=== PATIENT | female | born 2000 | race American Indian/Alaskan Native ===

== ENCOUNTER 2020-10-25 22:18 | Inpatient (IN) | payer MEDICAID ==
[2020-10-25] MEDS ORDERED: ePHEDrine SULFATE 50 MG/1 ML INJ IV PRN (22:49)
[2020-10-25] MEDS ORDERED: MINERAL OIL 30 ML ORAL LIQD PO PRN (22:49)
[2020-10-25] MEDS ORDERED: LIDOCAINE (2%) 20 MG/1 ML VIAL 20 ML MDV INFILTRATI ONE (22:49)
[2020-10-25] MEDS ORDERED: diphenhydrAMINE 25 MG CAP PO PRN (22:51)
[2020-10-25] MEDS ORDERED: MAGNESIUM HYDROXIDE (MOM) ORAL LIQD UDC PO PRN (22:51)
[2020-10-25] MEDS ORDERED: LANOLIN/ZINC/DIMETHICONE (LANSINOH) 7 GM TP PRN (22:51)
[2020-10-25] MEDS ORDERED: WITCH HAZEL/ GLYCERIN PAD TP PRN (22:51)
[2020-10-25] MEDS ORDERED: LACTATED RINGERS 1,000 ML IV SCH (23:00)
[2020-10-25] MEDS ORDERED: OXYTOCIN DRIP 30 UNITS/500 ML BAG IV SCH (23:00)
--- NOTE | 2020-10-25 23:01 | Procedure Note ---
OB Delivery Note - Delivery Date of Delivery: 10/25/20 Surgeon: SAMI BURTON Estimated blood loss: 100cc - Vaginal Delivery presentation: vertex Intrapartum events: labor-<37 weeks, precipitous labor- <3hr Delivery induction: none Delivery monitor: none Route of delivery: Delivery placenta: spontaneous Delivery cord: 3 umbilical vessels Episiotomy: none Delivery laceration: none Anesthesia: none Delivery comments: Called to deliver placenta after precipitous of a patient who delivered a liveborn male upon arrival to L&D. Provider was not in house at time of . Came to room and found patient lying on stretcher holding baby on her chest; baby was crying. NICU nurse was present and states baby was over a minute old; 3 vessel cord double clamped and cut and baby taken to radiant warmer. Patient moved to labor bed and placenta/membranes delivered spontaneously and appeared intact. Patient states her blood type is B+ so cord blood was not obtained. Pitocin given IM since no IV was in place at time of . Fundus firmed with massage. EBL 100 cc. No lacerations noted. Vaginal sweep negative. Baby was taken to NICU. Weight and apgars not known at this time. Placenta sent to path.
[2020-10-25] MEDS ORDERED: OXYTOCIN 10 UNIT/1 ML INJ IM ONE (23:03)
--- NOTE | 2020-10-25 23:17 | History and Physical Report ---
History of Present Illness Date of examination: 10/25/20 Date of admission: 10/25/20 22:21 Chief complaint: Precipitous upon arrival to L&D; patient. History of present illness: 20 year old presented to L&D and delivered immediately upon entry into labor room. Provider was not in house so I was called to deliver placenta (see delivery note). Patient states her due date is 12/11/2020 and that she receives care at [facility]. records are not available. Patient denies any complications during the . States her only medication is vitamins. States she had cramps prior to coming to the ED and states her water broke in the ED. Past History Past Medical History: no pertinent history Past Surgical History: no surgical history [employer] History: denies: chlamydia, gonorrhea, hepatitis B, HIV, syphilis, trichomonas Family/Genetic History: none Social history: no significant social history, full code - Obstetrical History Expected Date of Delivery: 12/11/20 Actual Gestation: 33 Week(s) 2 Day(s) : 1 Para: 0 Hx # Term Pregnancies: 0 Number of Pregnancies: 0 Spontaneous Abortions: 0 Induced : 0 Number of Living Children: 0 Medications and Allergies Allergies Allergy/AdvReac Type Severity Reaction Status Date / Time No Known Allergies Allergy Unverified 10/25/20 22:27 Home Medications Medication Instructions Recorded Confirmed Last Taken Type 148/Iron/Folate 6/Dha 1 mg PO DAILY 10/25/20 10/25/20 10/25/20 09:00 History Active Meds: Active Medications Bisacodyl (Bisacodyl 10 Mg Rect Supp) 10 mg ND BID PRN PRN Reason: Constipation Diphenhydramine HCl (Diphenhydramine 25 Mg Cap) 25 mg PO Q6H PRN PRN Reason: Itching Ephedrine Sulfate (Ephedrine Sulfate 50 Mg/1 Ml Inj) 10 mg IV Q2M PRN PRN Reason: Hypotension Lactated Ringer's (Lactated Ringers) 1,000 mls @ 125 mls/hr IV DIRECT FLAKITA Oxytocin/Sodium Chloride (Pitocin/Ns 30 Unit/500ml) 30 units in 500 mls @ 40 m ls/hr IV TITR FLAKITA; Protocol Ibuprofen (Ibuprofen 600 Mg Tab) 600 mg PO Q6H FLAKITA Lidocaine (Lidocaine (2%) 20 Mg/1 Ml Vial 20 Ml Mdv) 20 ml INFILTRATI ONCE ONE Stop: 10/25/20 22:50 Magnesium Hydroxide (Magnesium Hydroxide (Mom) Oral Liqd Udc) 30 ml PO HS PRN PRN Reason: Constipation Mineral Oil (Mineral Oil 30 Ml Oral Liqd) 30 ml PO QHS PRN PRN Reason: Constipation Multi-Ingredient Ointment (Lanolin/Zinc/Dimethicone (Lansinoh) 7 Gm) 1 applic TP PRN PRN PRN Reason: Sore Nipples Oxytocin (Oxytocin 10 Unit/1 Ml Inj) 10 unit IM ONCE ONE Stop: 10/25/20 23:04 Sodium Chloride (Sodium Chloride 0.9% 10 Ml Flush Syringe) 10 ml IV PRN NR Witch Hannah/Glycerin (Witch Hannah/ Glycerin Pad) 1 each TP PRN PRN PRN Reason: Hemorrhoid/cleansing/soothing Review of Systems All systems: negative (just delivered a baby upon arrival to L&D) - Vital Signs Vital signs: Vital Signs Temp Pulse Resp BP Pulse Ox 99.1 F 98 H 20 139/68 100 10/25/20 22:30 10/25/20 22:30 10/25/20 22:30 10/25/20 22:30 10/25/20 22:30 Temp Pulse Resp BP Pulse Ox 99.1 F 92 H 20 118/60 100 10/25/20 22:30 10/25/20 23:02 10/25/20 22:30 10/25/20 22:56 10/25/20 23:02 - Physical Exam Abdomen: Positive: normal appearance, soft. Negative: distention, tenderness, guarding, rigidity Genitourinary (Female): Positive: normal external genitalia, normal perenium. Negative: perineal/vulvar lesions Vagina: Positive: other (small amount of lochia rubra) Uterus: Positive: enlarged. Negative: tender Extremities: Positive: normal. Negative: tenderness, edema Results All other labs normal. Assessment and Plan A: , delivered. Precipitous delivery. Delivery of intact placenta and membranes. No records available. GBS unknown. P: Admit. Baby in NICU due to gestation. Request records when office opens tomorrow morning. Notified Dr. Dewitt of .
[2020-10-25] MEDS: IBUPROFEN 600 MG TAB PO SCH (23:27)
[2020-10-25 23:34] LABS: Hematocrit 32.6 % (30.3-42.9); Hemoglobin 11.2 gm/dl (10.1-14.3); Mean Corpuscular HGB Conc 34 % (30-34); Mean Corpuscular Volume 91 fl (79-97); Platelet Count 198 K/mm3 (140-440); Red Blood Count 3.58 M/mm3 (3.65-5.03); Red Cell Distribution Width 13.2 % (13.2-15.2)
[2020-10-26] MEDS: IBUPROFEN 600 MG TAB PO SCH ×4 (06:16→23:26)
--- NOTE | 2020-10-26 09:15 | Progress Note ---
Assessment and Plan A: S/P p: Continue routine pp orders D/C home tomm if stable Subjective - Subjective Date of service: 10/26/20 Principal diagnosis: s/p Patient reports: appetite normal, voiding normally, pain well controlled, ambulating normally [place]: doing well, bottle feeding Objective - Vital Signs Latest vital signs: Vital Signs Temp Pulse Resp BP BP Pulse Ox 10/26/20 08:08 98.1 F 77 16 112/59 97 10/26/20 07:13 18 10/26/20 06:16 18 10/26/20 04:37 97.8 F 88 18 107/66 97 10/26/20 00:29 98.3 F 84 18 116/55 99 10/26/20 00:27 18 10/25/20 23:42 84 100 10/25/20 23:41 82 123/64 10/25/20 23:37 93 H 100 10/25/20 23:32 106 H 100 10/25/20 23:30 98.9 F 85 18 130/70 100 10/25/20 23:27 85 100 10/25/20 23:26 88 130/70 10/25/20 23:22 95 H 100 10/25/20 23:17 89 100 10/25/20 23:15 90 18 118/61 100 10/25/20 23:12 83 100 10/25/20 23:11 90 118/61 10/25/20 23:07 83 100 10/25/20 23:02 92 H 100 10/25/20 23:00 83 18 118/60 100 10/25/20 22:57 92 H 100 10/25/20 22:56 83 118/60 10/25/20 22:52 104 H 100 10/25/20 22:47 104 H 100 10/25/20 22:45 100 H 18 139/58 100 10/25/20 22:42 100 H 139/68 100 10/25/20 22:40 100 H 139/58 10/25/20 22:30 99.1 F 98 H 20 139/68 100 Intake and Output 10/25/20 10/26/20 10/26/20 22:59 06:59 14:59 Intake Total 480 Output Total 700 Balance -220 Intake: Oral 480 Output: Urine 700 Void 700 Other: Total, Intake Amount 480 Total, Output Amount 700 Weight 127 lb Estimated Blood Loss 100 - Exam Breasts: Present: normal Abdomen: Present: normal appearance, soft, normal bowel sounds Vulva: both: normal Uterus: Present: normal, firm, fundal height below umbilicus Extremities: Present: normal - Labs Labs: Abnormal lab results 10/25/20 Range/Units 22:35 RBC 3.58 L (3.65-5.03) M/mm3
--- NOTE | 2020-10-26 09:22 | Discharge Summary ---
Providers - Providers Date of Admission: 10/25/20 22:21 Date of discharge: 10/27/20 Attending physician: ISMAEL CANALES Primary care physician: ISMAEL CANALES Hospitalization Reason for admission: IUP - Delivery: Episiotomy: none Laceration: none Other procedures: none complications: none Discharge diagnosis: delivery baby: male Hospital course: Pt delivered upon arrival to L&D and had no pp complications. See H&P, Delivery summary, and pp notes. Condition at discharge: Stable Plan - Discharge Medications Prescriptions: Ibuprofen [Motrin 600 MG tab] 600 mg PO Q6HR #30 tablet - Provider Discharge Summary Activity: routine, no sex for 6 weeks, no heavy lifting 4 weeks, no strenuous exercise Diet: routine Instructions: routine Additional instructions: [] Smoking cessation referral if applicable(refer to patient education folder for contact #) [] Refer to [facility] Booklet Call your doctor immediately for: * Fever > 100.5 * Heavy vaginal bleeding ( >1 pad per hour) * Severe persistent headache * Shortness of breath * Reddened, hot, painful area to leg or breast * Drainage or odor from incision. * Keep incision clean and dry at all times and follow doctor's instructions regarding bathing/showering - Follow up plan Follow up: ISMAEL CANALES MD [Primary Care Provider] - 6 Weeks
[2020-10-26 16:14] LABS: Hematocrit 30.5 % (30.3-42.9); Hemoglobin 10.3 gm/dl (10.1-14.3)
[2020-10-27] MEDS: IBUPROFEN 600 MG TAB PO SCH (05:41)
[2020-10-27 15:46] VITALS: BP 110/67
== END 2020-10-27 18:25 | disposition home or self-care (01) | DRG 775 ==
LOC: TRG 22:18 → LD 22:21 → OB 10-26 00:39
PROVIDERS: ADMIT Obstetrics & Gynecology; ATTEND Obstetrics & Gynecology
PROC: 10E0XZZ Delivery of Products of Conception, External Approach (ICD-10-PCS; principal; 2020-10-25)
DX: O60.14X0 Preterm labor third trimester with preterm delivery third trimester, not applicable or unspecified (principal); Z3A.33 33 weeks gestation of pregnancy; Z37.0 Single live birth; O62.3 Precipitate labor; Z20.822 Contact with and (suspected) exposure to COVID-19
CPT/HCPCS: 36415; 85014; 85018; 85027; 86850; 86900; 86901; 88307; G0378; J2590; U0003